=== PATIENT | male | born 1980 | race Caucasian/White ===

== ENCOUNTER 2016-07-11 04:53 | Emergency (ER) | payer BC ==
[2016-07-11] MEDS ORDERED: Alum Hydrox/Mag Hydrox/Simeth 15 ML, Lidocaine 2% 5 ML PO ONE ×2 (05:04)
[2016-07-11 05:45] LABS: CHLORIDE,CL 102 mmol/L (98-110); SODIUM,NA 140 mmol/L (136-146)
--- NOTE | 2016-07-11 06:13 | EDM.PDOC ---
ED HPI GENERAL MEDICAL PROBLEM - General Chief Complaint: Chest Pain Stated Complaint: SHORTNESS OF BREATH Time Seen by Provider: 07/11/16 06:11 - History of Present Illness INITIAL COMMENTS - FREE TEXT/NARRATIVE: HISTORY AND PHYSICAL: History of present illness: Patient 35-year-old male with recurrent chest pain insomnia and anxiety is vaguely described as no associated palpitations nausea vomiting fever chills or other concern Review of systems: As per history of present illness and below otherwise all systems reviewed and negative. Past medical history: As per history of present illness and as reviewed below otherwise noncontributory. Surgical history: As per history of present illness and as reviewed below otherwise noncontributory. Social history: No reported history of drug or alcohol abuse. Family history: As per history of present illness and as reviewed below otherwise noncontributory. Physical exam: HEENT: Atraumatic, normocephalic, pupils reactive, negative for conjunctival pallor or scleral icterus, mucous membranes moist, throat clear, neck supple, nontender, trachea midline. Lungs: Clear to auscultation, breath sounds equal bilaterally, chest nontender. Heart: S1S2, regular, negative for clicks, rubs, or JVD. Abdomen: Soft, nondistended, nontender. Negative for masses or hepatosplenomegaly. Negative for costovertebral tenderness. Pelvis: Stable nontender. Genitourinary: Deferred. Rectal: Deferred. Extremities: Atraumatic, negative for cords or calf pain. Neurovascular unremarkable. Neuro: Awake, alert, oriented anxious,. Cranial nerves II through XII unremarkable. Cerebellum unremarkable. Motor and sensory unremarkable throughout. Exam nonfocal. Diagnostics: CBC CMP troponin chest x-ray EKG Therapeutics: None Impression: #1 atypical chest pain #2 anxiety #3 and some Definitive disposition and diagnosis as appropriate pending reevaluation and review of above. chest area Pain Score (Numeric/FACES): 1 - Related Data Allergies Allergy/AdvReac Type Severity Reaction Status Date / Time No Known Allergies Allergy Verified 07/11/16 04:59 Home Meds: Home Meds LORazepam 1 tab PO ASDIRECTED 07/11/16 [History] Omeprazole Magnesium [Prilosec Otc] 20 mg PO DAILY 07/11/16 [History] Past Medical History - Past Health History Medical/Surgical History: Denies Medical/Surgical History HEENT History: Reports: None Cardiovascular History: Reports: None Respiratory History: Reports: None Gastrointestinal History: Reports: None Genitourinary History: Reports: None Musculoskeletal History: Reports: None Neurological History: Reports: None Psychiatric History: Reports: Anxiety Endocrine/Metabolic History: Reports: None Hematologic History: Reports: None Immunologic History: Reports: None Oncologic (Cancer) History: Reports: None Dermatologic History: Reports: None - Infectious Disease History Infectious Disease History: Reports: None Social & Family History - Family History Family Medical History: Noncontributory - Tobacco Use Smoking Status *Q: Current Every Day Smoker Years of Tobacco use: 10 Packs/Tins Daily: 0.5 Second Hand Smoke Exposure: Yes - Caffeine Use Caffeine Use: Reports: Soda - Alcohol Use Days Per Week of Alcohol Use: 7 Number of Drinks Per Day: 5 Total Drinks Per Week: 35 - Recreational Drug Use Recreational Drug Use: No ED ROS GENERAL - Review of Systems Review Of Systems: ROS reveals no pertinent complaints other than HPI. ED EXAM, GENERAL - Physical Exam Exam: See Below (See dictated) Course - Vital Signs Last Recorded V/S: Last Vital Signs Temp 37.9 C 07/11/16 05:03 Pulse 110 H 07/11/16 06:03 Resp 17 07/11/16 06:03 BP 136/107 H 07/11/16 06:03 Pulse Ox 98 07/11/16 06:03 - Orders/Labs/Meds Orders: Active Orders 24 hr Category Date Time Status EKG 12 Lead [EKG Documentation Completion] [RC] STAT Care 07/11/16 05:03 Active Chest 1V Frontal [CR] Stat Exams 07/11/16 05:03 Taken Labs: Laboratory Tests 07/11/16 07/11/16 07/11/16 Range/Units 05:14 05:14 05:14 WBC 6.15 (4.0-11.0) K/uL RBC 4.69 (4.50-5.90) M/uL Hgb 17.0 (13.0-17.0) g/dL Hct 50.4 H (38.0-50.0) % MCV 107.5 H (80.0-98.0) fL MCH 36.2 H (27.0-32.0) pg MCHC 33.7 (31.0-37.0) g/dL RDW Std Deviation 55.8 (28.0-62.0) fl RDW Coeff of Reese 14 (11.0-15.0) % Plt Count 296 (150-400) K/uL MPV 10.90 (7.40-12.00) fL Neut % (Auto) 42.0 L (48.0-80.0) % Lymph % (Auto) 46.3 H (16.0-40.0) % Kittson % (Auto) 9.1 (0.0-15.0) % Eos % (Auto) 1.6 (0.0-7.0) % Baso % (Auto) 1.0 (0.0-1.5) % Neut # 2.6 (1.4-5.7) K/uL Lymph # 2.9 H (0.6-2.4) K/uL Kittson # 0.6 (0.0-0.8) K/uL Eos # 0.1 (0.0-0.7) K/uL Baso # 0.1 (0.0-0.1) K/uL Nucleated RBC % 0.0 /100WBC Nucleated RBCs # 0 K/uL Sodium 140 (136-146) mmol/L Potassium 3.9 (3.5-5.1) mmol/L Chloride 102 (98-110) mmol/L Carbon Dioxide 22 (21-31) mmol/L BUN 4 L (6.0-23.0) mg/dL Creatinine 1.0 (0.6-1.5) mg/dL Est Cr Clr Drug Dosing 115.32 mL/min Estimated GFR (MDRD) > 60.0 ml/min Glucose 106 (60-110) mg/dL Calcium 9.6 (8.8-10.8) mg/dL Total Bilirubin 0.6 (0.1-1.5) mg/dL AST 69 H (5-40) IU/L ALT 40 (8-54) IU/L Alkaline Phosphatase 107 (40-150) CK-MB (CK-2) 0.9 (0-6.6) ng/ml Troponin I < 0.10 (0.0-0.29) NG/ML Total Protein 7.9 (6.0-8.0) g/dL Albumin 4.2 (3.5-5.0) g/dL Globulin 3.7 H (2.0-3.5) g/dL Albumin/Globulin Ratio 1.1 L (1.3-2.8) Meds: Medications Discontinued Medications Generic Name Dose Route Start Last Admin Trade Name Devon PRN Reason Stop Dose Admin Al Hydroxide/Mg Hydroxide 15 0 ml 07/11/16 05:04 07/11/16 05:10 ml/ Lidocaine HCl 5 ml PO 07/11/16 05:05 20 each ONETIME ONE Administration Departure - Departure Time of Disposition: 06:12 Disposition: Home, Self-Care 01 Condition: good Clinical Impression: Atypical chest pain Instructions: Nonspecific Chest Pain Referrals: PCP,None [Primary Care Provider] - Forms: ED Department Discharge Additional Instructions: The following information is given to patients seen in the emergency department who are being discharged to home. This information is to outline your options for follow-up care. We provide all patients seen in our emergency department with a follow-up referral. The need for follow-up, as well as the timing and circumstances, are variable depending upon the specifics of your emergency department visit. If you don't have a primary care physician on staff, we will provide you with a referral. We always advise you to contact your personal physician following an emergency department visit to inform them of the circumstance of the visit and for follow-up with them and/or the need for any referrals to a consulting specialist. The emergency department will also refer you to a specialist when appropriate. This referral assures that you have the opportunity for followup care with a specialist. All of these measure are taken in an effort to provide you with optimal care, which includes your followup. Under all circumstances we always encourage you to contact your private physician who remains a resource for coordinating your care. When calling for followup care, please make the office aware that this follow-up is from your recent emergency room visit. If for any reason you are refused follow-up, please contact the [facility] emergency department at and asked to speak to the emergency department charge nurse. [facility] [address] [place] [id number] Followup primary medical doctor/clinic 24-48 hours return as needed as discussed - My Orders Last 24 Hours: My Active Orders 07/11/16 05:03 EKG 12 Lead [EKG Documentation Completion] [RC] STAT Chest 1V Frontal [CR] Stat - Assessment/Plan Last 24 Hours: My Active Orders 07/11/16 05:03 EKG 12 Lead [EKG Documentation Completion] [RC] STAT Chest 1V Frontal [CR] Stat
[2016-07-11 06:24] VITALS: BP 131/100
--- NOTE | 2016-07-11 15:01 | CR ---
EXAM DATE: 07/11/16 PATIENT'S AGE: 35 Patient: FRANCHESCA WYNNE Facility: [place], [place] Site . Site : 1980 Study: XRay Chest [id number]/7/2017 5:21:47 AM Ordering Physician: Doctor Sherman Final Report: INDICATION: chest pain TECHNIQUE: Chest 1 view COMPARISON: None FINDINGS: Cardiovascular and mediastinum: Heart size and vasculature are normal in caliber and appearance. Mediastinum is within normal limits. Lungs and pleural space: Low lung volumes. No focal consolidation. No sign of pleural effusion. No pneumothorax. Bones and soft tissues: No significant findings. IMPRESSION: No acute cardiopulmonary disease. Dictated by Ramses Gaviria MD @ 07/11/2016 5:34:47 AM Dictated by: Ramses Gaviria MD @ 07/11/2016 05:38:40 (Electronic Signature) Report Signed by Proxy and Original Signed Document filed in the Medical Record. ALICE
== END 2016-07-11 06:21 | disposition home or self-care (01) ==
LOC: MW.ED 04:53
DX: R07.89 Other chest pain (principal); F41.9 Anxiety disorder, unspecified; F17.210 Nicotine dependence, cigarettes, uncomplicated; Z79.899 Other long term (current) drug therapy
CPT/HCPCS: 36415; 71010; 80053; 82553; 84484; 85025; 93005; 99285; A9270; 99283

== ENCOUNTER → 2016-07-20 | Outpatient (CLI) | payer BC ==
--- NOTE | 2016-07-20 15:20 | CT ---
CT of the abdomen and pelvis without contrast. HISTORY: Pain TECHNIQUE: Axial CT images were obtained of the abdomen and pelvis without contrast. Coronal and sag ittal reconstructions obtained. FINDINGS: The lung bases are clear, no pleural effusion. The liver, spleen, adrenal glands, and pancreas appear unremarkable for noncontrast examination. The gallbladder appears normal. There is no bulky retroperitoneal lymphadenopathy. No abdominal ascite s. There is mild nonspecific retroperitoneal stranding. There are no calcifications noted within the kidneys or along the courses of the ureters bilaterally . The large and small bowel are normal in caliber without evidence of obstruction. The appendix appear s normal. There is no bulky pelvic lymphadenopathy. No free fluid. No free air. The urinary bladder appears normal. The visualized osseous structures appear normal. IMPRESSION: No acute findings within the abdomen or pelvis.
== END ==
LOC: MW.DI 13:18
PROVIDERS: ATTEND Nurse Practitioner Family
DX: D64.9 Anemia, unspecified (principal)
CPT/HCPCS: 74176; 74176-26

== ENCOUNTER 2017-08-03 13:30 | Emergency (ER) | payer BC ==
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
--- NOTE | 2017-08-03 14:26 | CT ---
EXAMINATION: Non contrast CT head and facial bones. Coronal and sagittal reformats. HISTORY: Right orbital pain FINDINGS: Head: No evidence of intra or extra axial hemorrhage, mass, midline shift, hydrocephalus or edema. No hypoattenuation changes in the major vascular territories to suggest acute infarct. No abnormal i ntracranial calcifications are detected. No evidence of substantial vascular calcifications. The pa ranasal sinuses and mastoid air cells are well aerated without substantial findings. The pituitary f amalia appears unremarkable. The calvarium is intact. No evidence of skull fracture. Facial bones: The paranasal sinuses are grossly clear. Probable tiny osteoma within the right frontal sinus. Minimal leftward deviation of the nasal septum. Orbital and maxillary miller appear intact. Sm all mucous retention cyst within the maxillary sinuses. Psychometric arches and pterygoid plates are intact. Temporomandibular joints are symmetric. Mandible is intact. Nasal bones appear preserved. No significant soft tissue swelling. Orbits and globes are symmetric. IMPRESSION: 1. No acute intracranial findings. 2. No acute facial bone injury.
[2017-08-03 15:00] VITALS: BP 151/113
== END 2017-08-03 14:40 | disposition home or self-care (01) ==
LOC: MW.ED 13:30
DX: S06.0X0A Concussion without loss of consciousness, initial encounter (principal); S00.11XA Contusion of right eyelid and periocular area, initial encounter; F17.210 Nicotine dependence, cigarettes, uncomplicated; Z79.899 Other long term (current) drug therapy; V43.92XA Unspecified car occupant injured in collision with other type car in traffic accident, initial encounter
CPT/HCPCS: 70450; 70450-26; 70486; 70486-26; 99283; 99284-25

== ENCOUNTER 2017-08-23 17:49 | Emergency (ER) | payer BC ==
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
[2017-08-23 18:18] VITALS: BP 142/110
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
== END 2017-08-23 19:00 | disposition home or self-care (01) ==
LOC: MW.ED 17:49
DX: S09.90XA Unspecified injury of head, initial encounter (principal); F17.210 Nicotine dependence, cigarettes, uncomplicated; W22.8XXA Striking against or struck by other objects, initial encounter
CPT/HCPCS: 70450; 70450-26; 70486; 70486-26; 99284-25

== ENCOUNTER 2017-08-25 09:38 | Emergency (ER) | payer BC ==
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
[2017-08-25 15:00] VITALS: BP 153/106
== END 2017-08-25 10:06 | disposition home or self-care (01) ==
LOC: MW.ED 09:38
DX: S06.0X9A Concussion with loss of consciousness of unspecified duration, initial encounter (principal); F41.9 Anxiety disorder, unspecified; V89.2XXA Person injured in unspecified motor-vehicle accident, traffic, initial encounter
CPT/HCPCS: 99282